=== PATIENT | male | born 1980 | race Two or more races ===

== ENCOUNTER 2018-06-15 12:07 | Emergency (ER) | payer OTHER ==
[~2018-06-15] VITALS: Ht 185.4 cm; Wt 99.8 kg
[2018-06-15 12:07] VITALS: BP 123/91
== END 2018-06-15 12:44 | disposition home or self-care (01) ==
LOC: ER 12:11
DX: H60.92 Unspecified otitis externa, left ear (principal); F17.200 Nicotine dependence, unspecified, uncomplicated; Z60.2 Problems related to living alone

== ENCOUNTER 2019-09-06 11:24 | Emergency (ER) | payer OTHER ==
[~2019-09-06] VITALS: Ht 185.4 cm; Wt 100.2 kg
[2019-09-06 11:38] VITALS: BP 129/95
--- NOTE | 2019-09-06 11:45 | NUR ---
AT BEDSIDE FOR EVAL.
[2019-09-06] MEDS ORDERED: KETOROLAC TROMETHAMINE 15 MG/ML VIAL ONE (12:01)
[2019-09-06] MEDS: KETOROLAC TROMETHAMINE INJ 30 MG/ML VIAL IM ONE (12:04)
--- NOTE | 2019-09-06 12:04 | NUR ---
Patient discharged to home in stable condition. Written and verbal after care instructions given. Patient verbalizes understanding of instruction.
== END 2019-09-06 12:06 | disposition home or self-care (01) ==
LOC: ER 11:24
DX: M79.674 Pain in right toe(s) (principal); Z60.2 Problems related to living alone
CPT/HCPCS: J1885

== ENCOUNTER 2021-05-15 14:39 | Emergency (ER) | payer OTHER ==
[~2021-05-15] VITALS: Ht 185.4 cm; Wt 99.8 kg
[2021-05-15 15:02] VITALS: BP 155/97
--- NOTE | 2021-05-15 15:10 | NUR ---
BIBS FOR C/O SORETHROAT X 2 DAYS,NO COVID VACCINATION. DENIES SOB. IN ROOM AIR. RESPIRATION REGULAR AND UNLABORED. WILL CONTINUE TO MONITOR THE PATIENT.
--- NOTE | 2021-05-15 16:14 | NUR ---
RAPID INFLUENZA, STREPH THROAT, COVID ANTIGEN AND COVID PCR SWABS DONE AND SENT TO THE LAB
[2021-05-15] MEDS ORDERED: ACET-2605 PO (17:19)
--- NOTE | 2021-05-15 18:08 | NUR ---
CALL FROM LAB,COVID (+)
--- NOTE | 2021-05-15 18:20 | NUR ---
Patient discharged to home in stable condition. Written and verbal after care instructions given. Patient verbalizes understanding of instruction.
--- NOTE | 2021-05-19 13:52 | NUR ---
PATIENT WAS INFORMED OF THE COVID+ RESULT, VERBALIZED UNDERSTANDING
== END 2021-05-15 18:20 | disposition home or self-care (01) ==
LOC: ER 14:51
DX: U07.1 COVID-19 (principal); F17.200 Nicotine dependence, unspecified, uncomplicated
CPT/HCPCS: 87070; 87426; 87804; 87880; 99283; C9803 ×2; U0003; 86403-TC

== ENCOUNTER 2021-08-01 16:41 | Emergency (ER) | payer OTHER ==
[~2021-08-01] VITALS: Ht 185.4 cm; Wt 102.1 kg
[~2021-08-01 16:41] MED LIST: ACET-2605 PO
[2021-08-01 16:47] VITALS: BP 140/98
--- NOTE | 2021-08-01 17:02 | NUR ---
SEEN AND EXAMINED BY .
--- NOTE | 2021-08-01 17:15 | NUR ---
COVID SPECIMEN OBTAINED AND SENT TO LAB
--- NOTE | 2021-08-01 18:00 | NUR ---
Patient discharged to home in stable condition. Written and verbal after care instructions given. Patient verbalizes understanding of instruction.
== END 2021-08-01 18:01 | disposition home or self-care (01) ==
LOC: ER 16:49
DX: R05.9 Cough, unspecified (principal); Z20.822 Contact with and (suspected) exposure to COVID-19; F17.200 Nicotine dependence, unspecified, uncomplicated
CPT/HCPCS: 71045; 87426; 99283; C9803; U0003

== ENCOUNTER 2022-12-21 13:53 | Emergency (ER) | payer OTHER ==
[~2022-12-21] VITALS: Ht 185.4 cm; Wt 104.3 kg
[2022-12-21 16:35] VITALS: BP 124/75; TEMP 98.6; O2SAT 99
== END 2022-12-21 16:36 | disposition home or self-care (01) ==
LOC: ER 13:53
DX: R05.9 Cough, unspecified (principal); F17.200 Nicotine dependence, unspecified, uncomplicated; Z20.822 Contact with and (suspected) exposure to COVID-19; Z60.2 Problems related to living alone
CPT/HCPCS: 99284; 71045; 87426; 87804 ×2; C9803

== ENCOUNTER 2023-06-07 12:38 | Emergency (ER) | payer OTHER ==
[~2023-06-07] VITALS: Ht 185.4 cm; Wt 95.3 kg
[2023-06-07] MEDS ORDERED: IBUP-1953 PO (13:10)
[2023-06-07] MEDS ORDERED: AZIT250T PO (13:10)
[2023-06-07 13:25] VITALS: BP 134/85; TEMP 98.7; O2SAT 97
== END 2023-06-07 13:26 | disposition home or self-care (01) ==
LOC: ER 12:38
DX: J40 Bronchitis, not specified as acute or chronic (principal); F17.200 Nicotine dependence, unspecified, uncomplicated; Z60.2 Problems related to living alone